=== PATIENT | male | born 1995 | race Caucasian/White ===

== ENCOUNTER → 2016-07-28 | Outpatient (CLI) | payer BC ==
--- NOTE | 2016-07-28 15:04 | KCIC ---
PROCEDURE MR of the right knee HISTORY Right knee pain. Previous ACL and medial and lateral meniscal repair. New medial knee pain and swelling. Crepitus. Symptoms for 1 month. COMPARISON Not available FINDINGS Complex tear of the medial meniscus. Lateral meniscus is small and blunted, may all be due to prior meniscectomy, difficult to exclude recurrent tear however. Anterior cruciate ligament reconstruction is intact. Posterior cruciate ligament is intact. Medial collateral ligament is intact. Iliotibial band unremarkable. Fibular collateral ligament, biceps femoris tendon and popliteus tendon are intact. Mild hypointense thickening of the patellar tendon compatible with chronic tendinosis or scarring. Quadriceps tendon intact. Small joint effusion. Mild chondromalacia involving the medial joint compartment. No evidence of acute articular cartilage defect. No osteochondral loose body. Mild chondromalacia at the posterior aspect of the lateral joint compartment. Minimal subchondral marrow edema at the posterior nonweightbearing lateral femoral condyle. No significant Camejo cyst. There is a small multilobulated cyst or ganglion just anterior to knee joint and extending into the infrapatellar fat measuring 14 millimeters. IMPRESSION 1. Medial meniscal tear. 2. Small and blunted lateral meniscus, presumably due to prior meniscectomy. It is typically difficult to confidently exclude recurrent tear postsurgery however. 3. Mild patellar tendinosis or scarring. 4. Mild chondromalacia at medial and lateral joint compartments. Electronically signed by: Miguel Saenz MD (July 28, 2016 15:03:06)
== END | disposition home or self-care (01) ==
LOC: KCIC MRI 13:07
PROVIDERS: ATTEND Orthopaedic Surgery
DX: M25.561 Pain in right knee (principal)
CPT/HCPCS: 73721